=== PATIENT | male | born 1960 | race Caucasian/White ===

== ENCOUNTER 2020-04-08 08:21 | Emergency (ER) | payer BC ==
[~2020-04-08] VITALS: Ht 175.3 cm; Wt 95.0 kg
[2020-04-08] MEDS ORDERED: L.E.T SOLUTION TP ONE ×2 (08:54→09:00)
--- NOTE | 2020-04-08 08:56 | NUR ---
PT TO CT
[2020-04-08] MEDS ORDERED: PLEASE ENTER ALLERGIES MC SCH (09:00)
[2020-04-08 09:56] VITALS: BP 120/70
== END 2020-04-08 10:57 | disposition home or self-care (01) ==
LOC: ED 09:59
DX: S01.21XA Laceration without foreign body of nose, initial encounter (principal); S60.812A Abrasion of left wrist, initial encounter; F10.220 Alcohol dependence with intoxication, uncomplicated; I10 Essential (primary) hypertension; Z86.73 Personal history of transient ischemic attack (TIA), and cerebral infarction without residual deficits; W01.0XXA Fall on same level from slipping, tripping and stumbling without subsequent striking against object, initial encounter; Y93.89 Activity, other specified; Y92.89 Other specified places as the place of occurrence of the external cause; Y99.8 Other external cause status; Y90.0 Blood alcohol level of less than 20 mg/100 ml
CPT/HCPCS: 12051; 70450; 99284